=== PATIENT | male | born 1945 | race Caucasian/White ===

== ENCOUNTER 2018-01-16 13:42 | Inpatient (IN) | payer MEDICARE, OTHER ==
[~2018-01-16] VITALS: Ht 170.2 cm; Wt 68.2 kg
[2018-01-16 15:12] LABS: BUN/Creatinine Ratio 25.4; Calcium 8.9 mg/dL (8.5-10.1); Potassium 4.6 mmol/L (3.5-5.1)
[2018-01-16 15:16] LABS: Bilirubin, Total 0.8 mg/dL (0.2-1.0); Total Protein 7.6 g/dL (6.4-8.2)
[2018-01-16 15:23] LABS: Basophils # (auto) 0 uL; Basophils % (auto) 0.2 % (0.0-2.0); Eosinophils # (auto) 0 uL; Eosinophils % (auto) 0.2 % (0.0-7.0); Hematocrit 41.3 % (41.0-53.0); Hemoglobin 13.8 g/dL (13.5-17.5); Lymphocytes # (auto) 0.5 uL; Lymphocytes % (auto) 3.6 % (10.0-50.0); Mean Corpuscular Hemoglobin 30.8 pg (28.0-32.0); Mean Corpuscular Hgb Conc. 33.5 g/dL (32.0-36.0); Mean Corpuscular Volume 92.1 fL (80.0-100.0); Monocytes # (auto) 1.4 uL; Monocytes % (auto) 9.6 % (0.0-12.0); Neutrophils % (auto) 86.4 % (37.0-80.0); Platelet Count (auto) 480 10^3/uL (140-450); Red Blood Cells 4.48 10^6/uL (4.5-5.90); Red Cell Distribution Width 15.4 % (11.8-14.3)
[2018-01-16] MEDS ORDERED: ONDANSETRON HCL 4 MG/2 ML VIAL IV PRN (17:15)
[2018-01-16] MEDS: PIPERACILLIN-TAZOB 3.375GM 100 ML IV SCH (17:45)
[2018-01-16] MEDS ORDERED: ALBUTEROL SULF 2.5 MG/0.5ML(0.5%) NEB SOLN NEB ONE (18:45)
[2018-01-16] MEDS ORDERED: IPRATROPIUM BROM 0.5 MG/2.5ML INH SOL NEB ONE (18:45)
[2018-01-16 20:15] VITALS: BP 99/52
[2018-01-16 22:00] VITALS: BP 99/52
[2018-01-16] MEDS: D5W/LACTATED RINGERS 1,000 ML IV SCH (22:02)
[2018-01-17] MEDS: ALBUTEROL SULF 2.5 MG/0.5ML(0.5%) NEB SOLN NEB SCH ×4 (00:25→18:00)
[2018-01-17] MEDS: IPRATROPIUM BROM 0.5 MG/2.5ML INH SOL NEB SCH ×4 (00:25→18:00)
[2018-01-17] MEDS: PIPERACILLIN-TAZOB 3.375GM 100 ML IV SCH ×3 (01:23→18:31)
[2018-01-17 05:00] VITALS: BP 122/61
[2018-01-17] MEDS: D5W/LACTATED RINGERS 1,000 ML IV SCH ×2 (06:13→21:13)
[2018-01-17 09:26] VITALS: BP 112/58
[2018-01-17 09:30] LABS: Basophils # (auto) 0 uL; Basophils % (auto) 0.5 % (0.0-2.0); Eosinophils # (auto) 0.3 uL; Eosinophils % (auto) 4.5 % (0.0-7.0); Hematocrit 36.1 % (41.0-53.0); Lymphocytes # (auto) 1.4 uL; Lymphocytes % (auto) 19.6 % (10.0-50.0); Mean Corpuscular Hemoglobin 29.7 pg (28.0-32.0); Mean Corpuscular Hgb Conc. 32.4 g/dL (32.0-36.0); Mean Corpuscular Volume 91.9 fL (80.0-100.0); Monocytes # (auto) 0.7 uL; Monocytes % (auto) 9.2 % (0.0-12.0); Neutrophils # (auto) 4.7 uL; Neutrophils % (auto) 66.2 % (37.0-80.0); Platelet Count (auto) 369 10^3/uL (140-450); Red Blood Cells 3.92 10^6/uL (4.5-5.90); Red Cell Distribution Width 15.2 % (11.8-14.3); White Blood Cell 7.1 10^3/uL (4.4-10.8)
[2018-01-17 09:33] LABS: Albumin 2.4 g/dL (3.4-5.0); BUN/Creatinine Ratio 29.9; Bilirubin, Total 0.8 mg/dL (0.2-1.0); Calcium 8.5 mg/dL (8.5-10.1); Total Protein 6.2 g/dL (6.4-8.2)
[2018-01-17 09:37] LABS: Hemoglobin 11.7 g/dL (13.5-17.5)
[2018-01-17 12:29] VITALS: BP 95/53
[2018-01-17] MEDS ORDERED: PANTOPRAZOLE 40 MG TAB PO ONE (13:15)
[2018-01-17 17:00] VITALS: BP 103/60
[2018-01-17] MEDS: METOCLOPRAMIDE HCL 10 MG TAB PO SCH (18:31)
[2018-01-17] MEDS: OXYCODONE W/ ACETAMINOPHEN 5/325MG TABLET PO PRN (18:32)
[2018-01-17] MEDS: PANTOPRAZOLE 40 MG TAB PO SCH (22:02)
[2018-01-17 22:20] VITALS: BP 96/58
[2018-01-18] MEDS: PIPERACILLIN-TAZOB 3.375GM 100 ML IV SCH ×3 (00:43→17:17)
[2018-01-18] MEDS: OXYCODONE W/ ACETAMINOPHEN 5/325MG TABLET PO PRN ×5 (00:43→22:29)
[2018-01-18] MEDS: ALBUTEROL SULF 2.5 MG/0.5ML(0.5%) NEB SOLN NEB SCH ×5 (01:23→19:26)
[2018-01-18] MEDS: IPRATROPIUM BROM 0.5 MG/2.5ML INH SOL NEB SCH ×5 (01:23→19:26)
[2018-01-18 05:07] VITALS: BP 118/69
[2018-01-18] MEDS ORDERED: PIPERACILLIN-TAZOB 3.375GM 100 ML IV SCH (05:30)
[2018-01-18] MEDS: METOCLOPRAMIDE HCL 10 MG TAB PO SCH ×3 (06:35→17:17)
[2018-01-18 06:42] LABS: Basophils # (auto) 0 uL; Basophils % (auto) 0.5 % (0.0-2.0); Eosinophils # (auto) 0.2 uL; Eosinophils % (auto) 4.7 % (0.0-7.0); Hematocrit 30.7 % (41.0-53.0); Hemoglobin 10.1 g/dL (13.5-17.5); Lymphocytes # (auto) 1.4 uL; Mean Corpuscular Hemoglobin 30.5 pg (28.0-32.0); Mean Corpuscular Hgb Conc. 32.9 g/dL (32.0-36.0); Mean Corpuscular Volume 92.5 fL (80.0-100.0); Monocytes # (auto) 0.7 uL; Monocytes % (auto) 13.4 % (0.0-12.0); Neutrophils % (auto) 55.4 % (37.0-80.0); Platelet Count (auto) 352 10^3/uL (140-450); Red Blood Cells 3.32 10^6/uL (4.5-5.90); Red Cell Distribution Width 15.7 % (11.8-14.3); White Blood Cell 5.4 10^3/uL (4.4-10.8)
[2018-01-18 07:01] LABS: Calcium 8.2 mg/dL (8.5-10.1); Potassium 3.8 mmol/L (3.5-5.1)
[2018-01-18 07:03] LABS: BUN/Creatinine Ratio 27.1
[2018-01-18 08:42] LABS: Urine Bacteria NONE SEEN /hpf (None Seen); Urine Blood Negative /uL (Negative); Urine Specific Gravity 1.024 (1.001-1.035); Urine WBC 2 /hpf (0 - 3)
[2018-01-18 09:00] VITALS: BP 123/69
[2018-01-18] MEDS: PANTOPRAZOLE 40 MG TAB PO SCH ×2 (09:22→21:24)
[2018-01-18] MEDS: D5W/LACTATED RINGERS 1,000 ML IV SCH ×2 (09:23→22:35)
[2018-01-18] MEDS ORDERED: TEMAZEPAM 15 MG CAP PO PRN (11:00)
[2018-01-18 13:00] VITALS: BP 104/51
[2018-01-18 17:00] VITALS: BP 126/68
[2018-01-18 20:00] VITALS: BP 114/58
[2018-01-18 22:00] VITALS: BP 114/58
[2018-01-19] MEDS: PIPERACILLIN-TAZOB 3.375GM 100 ML IV SCH ×2 (01:32→09:56)
[2018-01-19 05:00] VITALS: BP 127/77
[2018-01-19] MEDS: OXYCODONE W/ ACETAMINOPHEN 5/325MG TABLET PO PRN (05:16)
[2018-01-19] MEDS: IPRATROPIUM BROM 0.5 MG/2.5ML INH SOL NEB SCH ×2 (06:08)
[2018-01-19] MEDS: ALBUTEROL SULF 2.5 MG/0.5ML(0.5%) NEB SOLN NEB SCH ×2 (06:08)
[2018-01-19 06:26] LABS: Basophils # (auto) 0 uL; Basophils % (auto) 0.7 % (0.0-2.0); Eosinophils # (auto) 0.2 uL; Eosinophils % (auto) 4.4 % (0.0-7.0); Hematocrit 28.8 % (41.0-53.0); Hemoglobin 9.7 g/dL (13.5-17.5); Lymphocytes # (auto) 1.5 uL; Lymphocytes % (auto) 28.8 % (10.0-50.0); Mean Corpuscular Hemoglobin 30.9 pg (28.0-32.0); Mean Corpuscular Hgb Conc. 33.6 g/dL (32.0-36.0); Monocytes # (auto) 0.6 uL; Monocytes % (auto) 11.8 % (0.0-12.0); Neutrophils # (auto) 2.8 uL; Neutrophils % (auto) 54.3 % (37.0-80.0); Nucleated Red Blood Cells % 0.1 %; Platelet Count (auto) 331 10^3/uL (140-450); Red Blood Cells 3.13 10^6/uL (4.5-5.90); Red Cell Distribution Width 15.2 % (11.8-14.3); White Blood Cell 5.1 10^3/uL (4.4-10.8)
[2018-01-19] MEDS: METOCLOPRAMIDE HCL 10 MG TAB PO SCH (06:40)
[2018-01-19 06:43] LABS: Calcium 8.3 mg/dL (8.5-10.1); Potassium 3.9 mmol/L (3.5-5.1)
[2018-01-19 06:46] LABS: BUN/Creatinine Ratio 18.4
[2018-01-19 09:25] VITALS: BP 108/63
[2018-01-19] MEDS: PANTOPRAZOLE 40 MG TAB PO SCH (09:56)
[2018-01-19 10:33] VITALS: BP 108/63
== END 2018-01-19 13:21 | disposition home or self-care (01) | DRG 871 ==
LOC: ER 13:42 → TELE 13:43 → TELE-CENTR 20:13 → CENTRAL 20:21
PROVIDERS: ADMIT Specialist; ATTEND Specialist
DX: A41.9 Sepsis, unspecified organism (principal); N18.6 End stage renal disease; K56.690 Other partial intestinal obstruction; N17.9 Acute kidney failure, unspecified; I13.2 Hypertensive heart and chronic kidney disease with heart failure and with stage 5 chronic kidney disease, or end stage renal disease; N39.0 Urinary tract infection, site not specified; J44.9 Chronic obstructive pulmonary disease, unspecified; I50.9 Heart failure, unspecified
CPT/HCPCS: 36415; 71045; 74176; 80048; 80053; 81001; 82150; 83605; 83690; 84484; 85025; 87040; 87076; 87081; 87086; 93005; 94640; 96361; 96365; 97116; 97163; 97530; J2405; J2543

== ENCOUNTER 2018-02-15 17:06 | Inpatient (IN) | payer MEDICARE, OTHER ==
[~2018-02-15] VITALS: Ht 177.8 cm; Wt 71.7 kg
[2018-02-15] MEDS ORDERED: ONDANSETRON HCL 4 MG/2 ML VIAL IV ONE ×2 (17:30→19:15)
[2018-02-15 18:11] LABS: Basophils # (auto) 0 uL; Eosinophils # (auto) 0 uL; Monocytes # (auto) 1.8 uL
[2018-02-15 18:12] LABS: Basophils % (auto) 0.1 % (0.0-2.0); Hematocrit 49.2 % (41.0-53.0); Hemoglobin 16.4 g/dL (13.5-17.5); Lymphocytes # (auto) 1.4 uL; Lymphocytes % (auto) 6.7 % (10.0-50.0); Mean Corpuscular Hemoglobin 30.4 pg (28.0-32.0); Mean Corpuscular Hgb Conc. 33.4 g/dL (32.0-36.0); Mean Corpuscular Volume 91.1 fL (80.0-100.0); Monocytes % (auto) 8.6 % (0.0-12.0); Neutrophils # (auto) 17.4 uL; Neutrophils % (auto) 84.6 % (37.0-80.0); Nucleated Red Blood Cells % 0.1 %; Platelet Count (auto) 595 10^3/uL (140-450); White Blood Cell 20.5 10^3/uL (4.4-10.8)
[2018-02-15 18:17] LABS: INR 0.99 (0.9-1.15); Partial Thromboplastin Time 26.1 sec (23.78-33.04); Prothrombin Time 10.6 sec (9.27-12.13)
[2018-02-15 18:23] LABS: Lactic Acid w/Reflex 3.9 mmol/L (0.4-2.0)
[2018-02-15 18:34] LABS: Albumin 4.2 g/dL (3.4-5.0); BUN/Creatinine Ratio 15.8; Bilirubin, Total 0.8 mg/dL (0.2-1.0); Calcium 10.6 mg/dL (8.5-10.1); Total Protein 9.4 g/dL (6.4-8.2)
[2018-02-15] MEDS ORDERED: SODIUM CHLORIDE 0.9% 2,000 ML IV ONE (19:15)
[2018-02-15] MEDS ORDERED: InsuLIN REG 1unit/0.01ml Soln (100units/ml) IV ONE (19:15)
[2018-02-15] MEDS ORDERED: CALCIUM GLUC 4.65meq/50ml D5AE 50 ML IV ONE (19:15)
[2018-02-15] MEDS ORDERED: SODIUM POLYSTYRENE SULF 15GM/60ML SUSP PO ONE (19:15)
[2018-02-15] MEDS ORDERED: fentaNYL CITRATE 100 MCG/2 ML VL IV ONE (19:15)
[2018-02-15] MEDS ORDERED: SODIUM BICARBONATE 8.4 % INJ 50ML VIAL IV ONE (19:15)
[2018-02-15] MEDS ORDERED: D5W 5% IV ONE (19:15)
[2018-02-15] MEDS ORDERED: LEVOFLOXACIN 750MG 150 ML IV ONE (19:15)
[2018-02-15] MEDS ORDERED: GASTROGRAFIN 120 ML SOL ONE (20:42)
[2018-02-15] MEDS ORDERED: PIPERACILLIN-TAZOB 2.25GM 50 ML IV ONE (21:30)
[2018-02-15] MEDS ORDERED: ONDANSETRON HCL 4 MG/2 ML VIAL IV PRN (21:30)
[2018-02-15] MEDS ORDERED: SODIUM CHLORIDE 0.9% 1,000 ML IV ONE (21:30)
[2018-02-15] MEDS ORDERED: ACETAMINOPHEN 650 MG RECT SUPP PR PRN (21:30)
[2018-02-15] MEDS ORDERED: MORPHINE SULF(PF) 0.5MG/ML 10ML VIAL IV PRN (21:30)
[2018-02-15] MEDS ORDERED: NITROGLYCERIN 0.4 MG SL TAB SL PRN (21:30)
[2018-02-15] MEDS ORDERED: SODIUM BICARBONATE 50ML VIAL 50 ML in SODIUM CHL 0.9% 1,000 ML IV ONE (21:45)
[2018-02-15] MEDS ORDERED: DEXTROSE 50% SYRINGE 50 ML IV ONE (21:51)
[2018-02-15] MEDS ORDERED: SODIUM BICARBONATE 50ML VIAL 50 ML in SODIUM CHLORIDE 0.9% 1,000 ML IV ONE (22:15)
[2018-02-15] MEDS: MEPERIDINE HCL (25 MG/ML) 1ML VIAL IV PRN (23:45)
[2018-02-16] MEDS: FAMOTIDINE (10MG/ML) 2ML VL IV SCH ×2 (01:00→10:56)
[2018-02-16] MEDS: metroNIDAZOLE 500MG/100ML 100 ML IV SCH ×4 (01:00→20:53)
[2018-02-16] MEDS: PIPERACILLIN-TAZOB 2.25GM 50 ML IV SCH ×4 (02:00→18:37)
[2018-02-16 03:51] LABS: Urine Bacteria NONE SEEN /hpf (None Seen); Urine Blood Negative /uL (Negative); Urine Hyaline Cast MOD /lpf (0 - 2); Urine Mucus FEW (None Seen); Urine WBC 3 /hpf (0 - 3)
[2018-02-16] MEDS: MEPERIDINE HCL (25 MG/ML) 1ML VIAL IV PRN ×4 (05:30→22:27)
[2018-02-16 06:06] LABS: Basophils # (auto) 0 uL; Basophils % (auto) 0.4 % (0.0-2.0); Eosinophils # (auto) 0 uL; Eosinophils % (auto) 0.3 % (0.0-7.0); Hematocrit 37.4 % (41.0-53.0); Hemoglobin 12.4 g/dL (13.5-17.5); Lymphocytes # (auto) 1.6 uL; Lymphocytes % (auto) 12.3 % (10.0-50.0); Mean Corpuscular Hemoglobin 30.3 pg (28.0-32.0); Mean Corpuscular Hgb Conc. 33.2 g/dL (32.0-36.0); Monocytes # (auto) 1.9 uL; Neutrophils # (auto) 9.2 uL; Nucleated Red Blood Cells % 0.1 %; Platelet Count (auto) 415 10^3/uL (140-450); Red Blood Cells 4.11 10^6/uL (4.5-5.90); Red Cell Distribution Width 14.5 % (11.8-14.3); White Blood Cell 12.7 10^3/uL (4.4-10.8)
[2018-02-16 06:39] LABS: Potassium 4.1 mmol/L (3.5-5.1)
[2018-02-16 06:44] LABS: Albumin 2.8 g/dL (3.4-5.0); BUN/Creatinine Ratio 21.8; Calcium 8.1 mg/dL (8.5-10.1)
[2018-02-16 06:47] LABS: Bilirubin, Total 0.8 mg/dL (0.2-1.0); Total Protein 6.1 g/dL (6.4-8.2)
[2018-02-17] MEDS ORDERED: BENZOCAINE (DENTAL) 20 % SPRAY 60ML MT ONE (00:37)
[2018-02-17] MEDS ORDERED: TEMAZEPAM 15 MG CAP ONE (02:37)
[2018-02-17] MEDS: metroNIDAZOLE 500MG/100ML 100 ML IV SCH ×3 (05:00→21:30)
[2018-02-17 05:12] LABS: Basophils # (auto) 0 uL; Basophils % (auto) 0.5 % (0.0-2.0); Eosinophils # (auto) 0.1 uL; Eosinophils % (auto) 1.5 % (0.0-7.0); Hematocrit 36.6 % (41.0-53.0); Hemoglobin 12.1 g/dL (13.5-17.5); Lymphocytes # (auto) 1.1 uL; Lymphocytes % (auto) 11.1 % (10.0-50.0); Mean Corpuscular Hemoglobin 30.5 pg (28.0-32.0); Mean Corpuscular Volume 92.5 fL (80.0-100.0); Monocytes # (auto) 1.2 uL; Neutrophils # (auto) 7.5 uL; Neutrophils % (auto) 74.9 % (37.0-80.0); Platelet Count (auto) 367 10^3/uL (140-450); Red Blood Cells 3.96 10^6/uL (4.5-5.90); Red Cell Distribution Width 14.7 % (11.8-14.3)
[2018-02-17 05:23] LABS: Albumin 2.6 g/dL (3.4-5.0); Calcium 8.2 mg/dL (8.5-10.1); Potassium 3.5 mmol/L (3.5-5.1)
[2018-02-17 05:25] LABS: BUN/Creatinine Ratio 23.2
[2018-02-17 05:27] LABS: Bilirubin, Total 0.6 mg/dL (0.2-1.0); Total Protein 5.8 g/dL (6.4-8.2)
[2018-02-17] MEDS: PIPERACILLIN-TAZOB 2.25GM 50 ML IV SCH ×4 (06:02→18:00)
[2018-02-17] MEDS ORDERED: SODIUM CHLORIDE LOCK 10 ML ONE (08:26)
[2018-02-17] MEDS ORDERED: diphenhdrAMINE HCL 50 MG/1 ML VL ONE (08:26)
[2018-02-17] MEDS: FAMOTIDINE (10MG/ML) 2ML VL IV SCH (10:07)
[2018-02-17 10:27] VITALS: BP 139/81
[2018-02-17 12:00] VITALS: BP 116/51
[2018-02-17] MEDS: MIDAZOLAM HCL 5 MG/ML-1ML VIAL ONE ×2 (13:28→13:40)
[2018-02-17] MEDS: fentaNYL CITRATE 100 MCG/2 ML VL ONE ×2 (13:28→13:40)
[2018-02-17 16:00] VITALS: BP 114/66
[2018-02-17 19:53] VITALS: BP 151/82
[2018-02-18 00:15] VITALS: BP 137/72
[2018-02-18] MEDS: PIPERACILLIN-TAZOB 2.25GM 50 ML IV SCH ×4 (00:25→18:33)
[2018-02-18 04:00] VITALS: BP 142/70
[2018-02-18] MEDS: metroNIDAZOLE 500MG/100ML 100 ML IV SCH ×3 (05:03→22:12)
[2018-02-18 05:47] LABS: Basophils # (auto) 0 uL; Basophils % (auto) 0.3 % (0.0-2.0); Eosinophils # (auto) 0.3 uL; Eosinophils % (auto) 2.7 % (0.0-7.0); Lymphocytes # (auto) 1.2 uL; Lymphocytes % (auto) 12.3 % (10.0-50.0); Mean Corpuscular Hemoglobin 30.4 pg (28.0-32.0); Mean Corpuscular Hgb Conc. 32.4 g/dL (32.0-36.0); Mean Corpuscular Volume 93.7 fL (80.0-100.0); Monocytes # (auto) 0.9 uL; Monocytes % (auto) 9.7 % (0.0-12.0); Neutrophils # (auto) 7.1 uL; Platelet Count (auto) 317 10^3/uL (140-450); Red Blood Cells 3.94 10^6/uL (4.5-5.90); Red Cell Distribution Width 14.6 % (11.8-14.3); White Blood Cell 9.5 10^3/uL (4.4-10.8)
[2018-02-18 06:11] LABS: Albumin 2.6 g/dL (3.4-5.0); BUN/Creatinine Ratio 23.1; Calcium 8.2 mg/dL (8.5-10.1)
[2018-02-18 06:13] LABS: Bilirubin, Total 0.9 mg/dL (0.2-1.0); Total Protein 5.8 g/dL (6.4-8.2)
[2018-02-18 08:00] VITALS: BP 144/82
[2018-02-18] MEDS ORDERED: POTASSIUM CHLORIDE 20 MEQ, LIDOCAINE 1% (LOCAL ANESTH.) 2 ML in SODIUM CHL 0.9% 100 ML IV ONE (10:30)
[2018-02-18] MEDS: MEPERIDINE HCL (25 MG/ML) 1ML VIAL IV PRN ×2 (10:40→19:52)
[2018-02-18] MEDS: FAMOTIDINE (10MG/ML) 2ML VL IV SCH (10:40)
[2018-02-18 11:54] VITALS: BP 140/84
[2018-02-18] MEDS ORDERED: DEXTROSE 10% 1,000 ML IV SCH (12:15)
[2018-02-18] MEDS: POTASSIUM CHL 20MEQ/100ML 100 ML IV SCH ×3 (14:44→18:33)
[2018-02-18 16:01] VITALS: BP 158/75
[2018-02-18] MEDS: D5W/SOD CHL 0.45% 1,000 ML IV SCH (16:38)
[2018-02-18 22:00] VITALS: BP 142/71
[2018-02-19] MEDS: PIPERACILLIN-TAZOB 2.25GM 50 ML IV SCH ×4 (00:37→17:39)
[2018-02-19] MEDS: D5W/SOD CHL 0.45% 1,000 ML IV SCH ×2 (00:38→17:40)
[2018-02-19] MEDS: MEPERIDINE HCL (25 MG/ML) 1ML VIAL IV PRN ×4 (04:58→18:41)
[2018-02-19] MEDS: metroNIDAZOLE 500MG/100ML 100 ML IV SCH ×3 (04:59→21:38)
[2018-02-19 05:00] VITALS: BP 164/74
[2018-02-19 06:31] LABS: Basophils # (auto) 0 uL; Basophils % (auto) 0.6 % (0.0-2.0); Eosinophils # (auto) 0.3 uL; Eosinophils % (auto) 3.2 % (0.0-7.0); Hematocrit 33.8 % (41.0-53.0); Hemoglobin 11.3 g/dL (13.5-17.5); Lymphocytes # (auto) 1.2 uL; Lymphocytes % (auto) 14.3 % (10.0-50.0); Mean Corpuscular Hemoglobin 30.7 pg (28.0-32.0); Mean Corpuscular Hgb Conc. 33.3 g/dL (32.0-36.0); Mean Corpuscular Volume 92.2 fL (80.0-100.0); Monocytes # (auto) 0.8 uL; Monocytes % (auto) 9.6 % (0.0-12.0); Neutrophils # (auto) 6.1 uL; Neutrophils % (auto) 72.3 % (37.0-80.0); Platelet Count (auto) 317 10^3/uL (140-450); Red Blood Cells 3.67 10^6/uL (4.5-5.90); Red Cell Distribution Width 13.9 % (11.8-14.3); White Blood Cell 8.4 10^3/uL (4.4-10.8)
[2018-02-19 06:47] LABS: Albumin 2.4 g/dL (3.4-5.0); BUN/Creatinine Ratio 17.6; Bilirubin, Total 0.8 mg/dL (0.2-1.0); Calcium 8.2 mg/dL (8.5-10.1); Potassium 3.3 mmol/L (3.5-5.1); Total Protein 5.2 g/dL (6.4-8.2)
[2018-02-19 09:00] VITALS: BP 153/76
[2018-02-19] MEDS: FAMOTIDINE (10MG/ML) 2ML VL IV SCH (09:56)
[2018-02-19 13:00] VITALS: BP 149/74
[2018-02-19 17:00] VITALS: BP 165/94
[2018-02-19] MEDS: TEMAZEPAM 15 MG CAP PO PRN (21:38)
[2018-02-19 21:49] VITALS: BP 141/72
[2018-02-20 04:53] VITALS: BP 140/68
[2018-02-20] MEDS: metroNIDAZOLE 500MG/100ML 100 ML IV SCH ×3 (06:04→21:07)
[2018-02-20] MEDS: PIPERACILLIN-TAZOB 2.25GM 50 ML IV SCH ×5 (06:05→23:51)
[2018-02-20] MEDS: MEPERIDINE HCL (25 MG/ML) 1ML VIAL IV PRN ×4 (06:10→20:41)
[2018-02-20] MEDS: D5W/SOD CHL 0.45% 1,000 ML IV SCH (06:51)
[2018-02-20 07:33] LABS: INR 1.2 (0.9-1.15); Partial Thromboplastin Time 26.5 sec (23.78-33.04); Prothrombin Time 12.7 sec (9.27-12.13)
[2018-02-20 09:00] VITALS: BP 125/67
[2018-02-20] MEDS: FAMOTIDINE (10MG/ML) 2ML VL IV SCH (09:38)
[2018-02-20] MEDS: POTASSIUM CHL 10 Meq TABLET PO SCH ×6 (12:00→17:11)
[2018-02-20 13:00] VITALS: BP 141/79
[2018-02-20 17:00] VITALS: BP 161/86
[2018-02-20] MEDS: TEMAZEPAM 15 MG CAP PO PRN (21:06)
[2018-02-20] MEDS: METOPROLOL TARTRATE 25 MG TAB PO SCH (21:07)
[2018-02-20 22:45] VITALS: BP 136/74
[2018-02-21] MEDS: D5W/SOD CHL 0.45% 1,000 ML IV SCH ×2 (05:13→16:26)
[2018-02-21] MEDS: metroNIDAZOLE 500MG/100ML 100 ML IV SCH ×3 (05:13→21:48)
[2018-02-21] MEDS: MEPERIDINE HCL (25 MG/ML) 1ML VIAL IV PRN ×3 (05:14→17:52)
[2018-02-21 05:20] VITALS: BP 144/70
[2018-02-21] MEDS: PIPERACILLIN-TAZOB 2.25GM 50 ML IV SCH ×4 (06:09→23:54)
[2018-02-21 09:23] VITALS: BP 137/73
[2018-02-21] MEDS: METOPROLOL TARTRATE 25 MG TAB PO SCH ×2 (10:19→21:49)
[2018-02-21] MEDS: FAMOTIDINE (10MG/ML) 2ML VL IV SCH (10:19)
[2018-02-21 13:28] VITALS: BP 146/77
[2018-02-21 14:14] LABS: BUN/Creatinine Ratio 6.3; Calcium 7.9 mg/dL (8.5-10.1); Potassium 3.6 mmol/L (3.5-5.1)
[2018-02-21] MEDS ORDERED: GOLYTELY 4L KIT PO ONE (14:30)
[2018-02-21 17:24] VITALS: BP 165/88
[2018-02-21 22:24] VITALS: BP 164/101
[2018-02-22] MEDS: MEPERIDINE HCL (25 MG/ML) 1ML VIAL IV PRN ×4 (03:12→21:25)
[2018-02-22] MEDS: D5W/SOD CHL 0.45% 1,000 ML IV SCH ×3 (04:55→21:57)
[2018-02-22] MEDS: metroNIDAZOLE 500MG/100ML 100 ML IV SCH ×3 (04:58→20:40)
[2018-02-22 05:50] VITALS: BP 148/75
[2018-02-22] MEDS: PIPERACILLIN-TAZOB 2.25GM 50 ML IV SCH ×3 (06:03→16:45)
[2018-02-22 09:06] VITALS: BP 163/75
[2018-02-22] MEDS: FAMOTIDINE (10MG/ML) 2ML VL IV SCH (10:00)
[2018-02-22] MEDS: METOPROLOL TARTRATE 25 MG TAB PO SCH ×2 (10:00→21:25)
[2018-02-22] MEDS ORDERED: ceFAZolin 1GM/50ML 50 ML IV ONE (10:22)
[2018-02-22] MEDS ORDERED: PROPOFOL 10 MG/ML 20 ML IV ONE (10:49)
[2018-02-22] MEDS ORDERED: fentaNYL CITRATE 100 MCG/2 ML VL ONE ×2 (10:49→11:15)
[2018-02-22] MEDS ORDERED: ROCURONIUM 10MG/ML 10ML VIAL IV ONE (10:49)
[2018-02-22] MEDS ORDERED: MORPHINE SULFATE INJECTION 1 ML ONE (11:24)
[2018-02-22] MEDS ORDERED: LABETALOL HCL 5 MG/ML ML 20ML VIAL IV ONE (11:24)
[2018-02-22] MEDS ORDERED: ePHEDrine SULFATE 50 MG/ML AMP IV PRN (12:15)
[2018-02-22] MEDS ORDERED: hydrALAZINE HCL 20 MG/ML VL IV PRN (12:15)
[2018-02-22] MEDS: MORPHINE SULF INJ 2 MG/ML SYRINGE 1ML IV PRN ×3 (12:31→13:10)
[2018-02-22 14:36] LABS: Basophils # (auto) 0.1 uL; Basophils % (auto) 0.3 % (0.0-2.0); Eosinophils # (auto) 0.1 uL; Eosinophils % (auto) 0.7 % (0.0-7.0); Lymphocytes # (auto) 1.5 uL; Lymphocytes % (auto) 8.5 % (10.0-50.0); Mean Corpuscular Hemoglobin 30.3 pg (28.0-32.0); Mean Corpuscular Hgb Conc. 32.6 g/dL (32.0-36.0); Mean Corpuscular Volume 92.9 fL (80.0-100.0); Monocytes % (auto) 5.7 % (0.0-12.0); Neutrophils # (auto) 14.8 uL; Neutrophils % (auto) 84.8 % (37.0-80.0); Nucleated Red Blood Cells % 0.1 %; Platelet Count (auto) 342 10^3/uL (140-450); Red Blood Cells 4.63 10^6/uL (4.5-5.90); Red Cell Distribution Width 14.3 % (11.8-14.3); White Blood Cell 17.5 10^3/uL (4.4-10.8)
[2018-02-22 15:01] LABS: BUN/Creatinine Ratio 5.8; Calcium 7.7 mg/dL (8.5-10.1); Potassium 3.5 mmol/L (3.5-5.1)
[2018-02-22 17:40] VITALS: BP 166/78
[2018-02-22 21:54] VITALS: BP 156/91
[2018-02-22 23:00] VITALS: BP 124/89
[2018-02-23] MEDS: PIPERACILLIN-TAZOB 2.25GM 50 ML IV SCH ×4 (00:07→17:42)
[2018-02-23] MEDS: metroNIDAZOLE 500MG/100ML 100 ML IV SCH ×3 (04:41→20:31)
[2018-02-23] MEDS: MEPERIDINE HCL (25 MG/ML) 1ML VIAL IV PRN ×4 (04:42→19:02)
[2018-02-23 05:15] VITALS: BP 171/91
[2018-02-23 05:21] VITALS: BP 133/75
[2018-02-23 07:48] LABS: Basophils # (auto) 0.1 uL; Basophils % (auto) 0.6 % (0.0-2.0); Eosinophils # (auto) 0.1 uL; Hematocrit 38.8 % (41.0-53.0); Hemoglobin 12.7 g/dL (13.5-17.5); Lymphocytes # (auto) 1.4 uL; Lymphocytes % (auto) 11.3 % (10.0-50.0); Mean Corpuscular Hemoglobin 29.9 pg (28.0-32.0); Mean Corpuscular Hgb Conc. 32.6 g/dL (32.0-36.0); Mean Corpuscular Volume 91.9 fL (80.0-100.0); Monocytes # (auto) 1.3 uL; Monocytes % (auto) 11.1 % (0.0-12.0); Neutrophils # (auto) 9.1 uL; Platelet Count (auto) 315 10^3/uL (140-450); Red Blood Cells 4.23 10^6/uL (4.5-5.90); Red Cell Distribution Width 14.5 % (11.8-14.3); White Blood Cell 11.9 10^3/uL (4.4-10.8)
[2018-02-23 08:02] LABS: Anion Gap 12 (5-15); Blood Urea Nitrogen 6 mg/dL (7-18); Calcium 7.6 mg/dL (8.5-10.1); Carbon Dioxide 25 mmol/L (21-32); Chloride 107 mmol/L (98-107); GFR African American 112 mL/min; GFR Non-African American 93 mL/min; Glucose 99 mg/dL (74-106); Potassium 3.8 mmol/L (3.5-5.1); Sodium 144 mmol/L (136-145)
[2018-02-23 08:48] VITALS: BP 193/83
[2018-02-23] MEDS ORDERED: LABETALOL HCL 5 MG/ML ML 20ML VIAL IV PRN (10:30)
[2018-02-23] MEDS: FAMOTIDINE (10MG/ML) 2ML VL IV SCH (10:40)
[2018-02-23] MEDS: METOPROLOL TARTRATE 25 MG TAB PO SCH ×2 (10:40→21:44)
[2018-02-23 13:07] VITALS: BP 147/91
[2018-02-23] MEDS: LABETALOL HCL 5 MG/ML ML 20ML VIAL IV PRN (16:59)
[2018-02-23 17:15] VITALS: BP 156/103
[2018-02-23] MEDS: D5W/SOD CHL 0.45% 1,000 ML IV SCH (21:38)
[2018-02-23 22:00] VITALS: BP 127/79
[2018-02-23] MEDS: ALBUTEROL SULF 2.5 MG/0.5ML(0.5%) NEB SOLN NEB SCH (22:16)
[2018-02-24] MEDS: MEPERIDINE HCL (25 MG/ML) 1ML VIAL IV PRN ×4 (03:05→18:37)
[2018-02-24] MEDS: metroNIDAZOLE 500MG/100ML 100 ML IV SCH ×3 (04:33→20:46)
[2018-02-24 05:13] VITALS: BP 139/68
[2018-02-24] MEDS: PIPERACILLIN-TAZOB 2.25GM 50 ML IV SCH ×5 (05:45→23:32)
[2018-02-24 06:16] VITALS: BP 139/68
[2018-02-24] MEDS: ALBUTEROL SULF 2.5 MG/0.5ML(0.5%) NEB SOLN NEB SCH ×4 (06:35→18:30)
[2018-02-24 07:06] LABS: Calcium 7.4 mg/dL (8.5-10.1); Potassium 3.3 mmol/L (3.5-5.1)
[2018-02-24 07:12] LABS: Basophils # (auto) 0 uL; Basophils % (auto) 0.5 % (0.0-2.0); Eosinophils # (auto) 0.2 uL; Eosinophils % (auto) 2.2 % (0.0-7.0); Hematocrit 33.4 % (41.0-53.0); Hemoglobin 11.3 g/dL (13.5-17.5); Lymphocytes # (auto) 1.1 uL; Lymphocytes % (auto) 14.8 % (10.0-50.0); Mean Corpuscular Hemoglobin 30.7 pg (28.0-32.0); Mean Corpuscular Hgb Conc. 33.8 g/dL (32.0-36.0); Mean Corpuscular Volume 90.8 fL (80.0-100.0); Monocytes # (auto) 0.9 uL; Neutrophils # (auto) 5.4 uL; Neutrophils % (auto) 70.5 % (37.0-80.0); Nucleated Red Blood Cells % 0.2 %; Platelet Count (auto) 273 10^3/uL (140-450); Red Blood Cells 3.67 10^6/uL (4.5-5.90); Red Cell Distribution Width 14.1 % (11.8-14.3); White Blood Cell 7.7 10^3/uL (4.4-10.8)
[2018-02-24 08:24] VITALS: BP 148/74
[2018-02-24] MEDS: FAMOTIDINE (10MG/ML) 2ML VL IV SCH (10:55)
[2018-02-24] MEDS: METOPROLOL TARTRATE 25 MG TAB PO SCH ×2 (10:56→21:23)
[2018-02-24] MEDS: D5W/SOD CHL 0.45% 1,000 ML IV SCH (11:48)
[2018-02-24 12:40] VITALS: BP 137/66
[2018-02-24 17:14] VITALS: BP 146/68
[2018-02-24] MEDS: TEMAZEPAM 15 MG CAP PO PRN (21:23)
[2018-02-24 22:00] VITALS: BP 141/64
[2018-02-25] MEDS: D5W/SOD CHL 0.45% 1,000 ML IV SCH ×2 (01:33→17:38)
[2018-02-25] MEDS: MEPERIDINE HCL (25 MG/ML) 1ML VIAL IV PRN ×4 (03:03→20:35)
[2018-02-25] MEDS: metroNIDAZOLE 500MG/100ML 100 ML IV SCH ×3 (04:50→22:25)
[2018-02-25 05:47] VITALS: BP 144/75
[2018-02-25] MEDS: PIPERACILLIN-TAZOB 2.25GM 50 ML IV SCH (05:49)
[2018-02-25] MEDS: ALBUTEROL SULF 2.5 MG/0.5ML(0.5%) NEB SOLN NEB SCH ×4 (06:41→18:33)
[2018-02-25 09:07] VITALS: BP 139/92
[2018-02-25] MEDS: METOPROLOL TARTRATE 25 MG TAB PO SCH ×2 (09:35→22:26)
[2018-02-25] MEDS: FAMOTIDINE (10MG/ML) 2ML VL IV SCH ×3 (09:40→22:26)
[2018-02-25] MEDS: PIPERACILLIN-TAZOB 3.375GM 100 ML IV SCH ×3 (11:43→23:51)
[2018-02-25 13:00] VITALS: BP 159/74
[2018-02-25 17:00] VITALS: BP 165/83
[2018-02-25 18:20] VITALS: BP 131/90
[2018-02-25 22:00] VITALS: BP 141/63
[2018-02-25] MEDS: TEMAZEPAM 15 MG CAP PO PRN (22:28)
[2018-02-26] MEDS: MEPERIDINE HCL (25 MG/ML) 1ML VIAL IV PRN ×5 (03:32→22:18)
[2018-02-26 05:00] VITALS: BP 162/98
[2018-02-26] MEDS: ALBUTEROL SULF 2.5 MG/0.5ML(0.5%) NEB SOLN NEB SCH ×4 (05:43→19:00)
[2018-02-26] MEDS: metroNIDAZOLE 500MG/100ML 100 ML IV SCH ×3 (05:51→21:29)
[2018-02-26] MEDS: D5W/SOD CHL 0.45% 1,000 ML IV SCH ×2 (06:58→20:40)
[2018-02-26] MEDS: PIPERACILLIN-TAZOB 3.375GM 100 ML IV SCH ×4 (06:58→23:42)
[2018-02-26] MEDS: LABETALOL HCL 5 MG/ML ML 20ML VIAL IV PRN ×2 (06:58→22:19)
[2018-02-26 08:07] LABS: Basophils # (auto) 0.1 uL; Basophils % (auto) 0.8 % (0.0-2.0); Eosinophils # (auto) 0.2 uL; Eosinophils % (auto) 3.5 % (0.0-7.0); Hematocrit 32.1 % (41.0-53.0); Hemoglobin 10.7 g/dL (13.5-17.5); Lymphocytes % (auto) 15.5 % (10.0-50.0); Mean Corpuscular Hemoglobin 30.4 pg (28.0-32.0); Mean Corpuscular Hgb Conc. 33.4 g/dL (32.0-36.0); Monocytes # (auto) 0.8 uL; Monocytes % (auto) 12.3 % (0.0-12.0); Neutrophils # (auto) 4.2 uL; Neutrophils % (auto) 67.9 % (37.0-80.0); Nucleated Red Blood Cells % 0.1 %; Platelet Count (auto) 316 10^3/uL (140-450); Red Blood Cells 3.52 10^6/uL (4.5-5.90); Red Cell Distribution Width 14.4 % (11.8-14.3); White Blood Cell 6.2 10^3/uL (4.4-10.8)
[2018-02-26 08:33] LABS: BUN/Creatinine Ratio 5.8; Calcium 7.6 mg/dL (8.5-10.1)
[2018-02-26 09:00] VITALS: BP 156/63
[2018-02-26] MEDS: METOPROLOL TARTRATE 25 MG TAB PO SCH ×2 (09:38→22:18)
[2018-02-26] MEDS: FAMOTIDINE (10MG/ML) 2ML VL IV SCH ×2 (09:40→22:17)
[2018-02-26 13:00] VITALS: BP 159/79
[2018-02-26 17:00] VITALS: BP 142/58
[2018-02-26 22:00] VITALS: BP 152/63
[2018-02-26] MEDS: TEMAZEPAM 15 MG CAP PO PRN (23:55)
[2018-02-27] VITALS (7 sets, daily range): BP systolic 140–173; BP diastolic 80–97
[2018-02-27] MEDS ORDERED: POTASSIUM CHL 20 Meq TABLET PO ONE ×2 (01:45→19:30)
[2018-02-27] MEDS: metroNIDAZOLE 500MG/100ML 100 ML IV SCH ×3 (05:05→21:00)
[2018-02-27 06:03] LABS: Basophils # (auto) 0.1 uL; Basophils % (auto) 0.8 % (0.0-2.0); Eosinophils # (auto) 0.2 uL; Eosinophils % (auto) 3.2 % (0.0-7.0); Hematocrit 32.3 % (41.0-53.0); Lymphocytes # (auto) 0.9 uL; Mean Corpuscular Hemoglobin 30.7 pg (28.0-32.0); Mean Corpuscular Volume 90.2 fL (80.0-100.0); Monocytes # (auto) 0.8 uL; Monocytes % (auto) 11.6 % (0.0-12.0); Neutrophils # (auto) 4.7 uL; Neutrophils % (auto) 70.4 % (37.0-80.0); Nucleated Red Blood Cells % 0.1 %; Platelet Count (auto) 334 10^3/uL (140-450); Red Blood Cells 3.58 10^6/uL (4.5-5.90); Red Cell Distribution Width 14.2 % (11.8-14.3); White Blood Cell 6.7 10^3/uL (4.4-10.8)
[2018-02-27 06:23] LABS: BUN/Creatinine Ratio 5.5; Calcium 7.5 mg/dL (8.5-10.1)
[2018-02-27] MEDS: PIPERACILLIN-TAZOB 3.375GM 100 ML IV SCH ×3 (06:32→17:23)
[2018-02-27] MEDS: MEPERIDINE HCL (25 MG/ML) 1ML VIAL IV PRN ×4 (06:32→21:31)
[2018-02-27] MEDS: ALBUTEROL SULF 2.5 MG/0.5ML(0.5%) NEB SOLN NEB SCH ×4 (07:04→18:19)
[2018-02-27] MEDS: METOPROLOL TARTRATE 25 MG TAB PO SCH ×2 (09:20→22:02)
[2018-02-27] MEDS: FAMOTIDINE (10MG/ML) 2ML VL IV SCH ×2 (09:20→22:01)
[2018-02-27] MEDS: D5W/SOD CHL 0.45% 1,000 ML IV SCH (10:45)
[2018-02-27] MEDS: LABETALOL HCL 5 MG/ML ML 20ML VIAL IV PRN ×3 (11:54→16:23)
[2018-02-27] MEDS: TEMAZEPAM 15 MG CAP PO PRN (22:02)
[2018-02-28] MEDS: PIPERACILLIN-TAZOB 3.375GM 100 ML IV SCH ×3 (00:16→13:00)
[2018-02-28] MEDS: D5W/SOD CHL 0.45% 1,000 ML IV SCH (00:16)
[2018-02-28] MEDS: LABETALOL HCL 5 MG/ML ML 20ML VIAL IV PRN ×2 (04:57→13:01)
[2018-02-28] MEDS: metroNIDAZOLE 500MG/100ML 100 ML IV SCH ×2 (04:59→13:01)
[2018-02-28 05:30] VITALS: BP 159/92
[2018-02-28] MEDS: ALBUTEROL SULF 2.5 MG/0.5ML(0.5%) NEB SOLN NEB SCH ×2 (07:03→10:02)
[2018-02-28 08:00] VITALS: BP 153/90
[2018-02-28] MEDS: METOPROLOL TARTRATE 25 MG TAB PO SCH (09:22)
[2018-02-28] MEDS: FAMOTIDINE (10MG/ML) 2ML VL IV SCH (09:23)
[2018-02-28] MEDS: MEPERIDINE HCL (25 MG/ML) 1ML VIAL IV PRN (09:28)
[2018-02-28 13:01] VITALS: BP 153/84
[2018-02-28] MEDS ORDERED: ACETAMINOPHEN 650 MG RECT SUPP PR ONE (17:34)
== END 2018-02-28 16:27 | DRG 853 ==
LOC: ER 17:06 → EDBD 17:06 → TELE 17:07 → DOU IN ICU 02-17 10:49 → TELE-WESTW 02-18 17:51
PROVIDERS: ADMIT Specialist; ATTEND Specialist
PROC: 0DJD8ZZ Inspection of Lower Intestinal Tract, Via Natural or Artificial Opening Endoscopic (ICD-10-PCS; principal; 2018-02-17 13:25)
PROC: 0DNL0ZZ Release Transverse Colon, Open Approach (ICD-10-PCS; 2018-02-22)
DX: A41.9 Sepsis, unspecified organism (principal); N17.0 Acute kidney failure with tubular necrosis; E87.1 Hypo-osmolality and hyponatremia; K56.51 Intestinal adhesions [bands], with partial obstruction; E87.6 Hypokalemia; E87.5 Hyperkalemia; I10 Essential (primary) hypertension; I25.10 Atherosclerotic heart disease of native coronary artery without angina pectoris; I72.3 Aneurysm of iliac artery; J44.9 Chronic obstructive pulmonary disease, unspecified; M54.9 Dorsalgia, unspecified; K57.30 Diverticulosis of large intestine without perforation or abscess without bleeding; M43.16 Spondylolisthesis, lumbar region; M48.061 Spinal stenosis, lumbar region without neurogenic claudication; Z80.8 Family history of malignant neoplasm of other organs or systems; Z82.49 Family history of ischemic heart disease and other diseases of the circulatory system; Z87.891 Personal history of nicotine dependence; Z90.49 Acquired absence of other specified parts of digestive tract; Z98.2 Presence of cerebrospinal fluid drainage device; Z79.899 Other long term (current) drug therapy
CPT/HCPCS: 36415; 70450; 71045; 74176; 74250; 80048; 80053; 81001; 82150; 82962; 83605; 83690; 84132; 84484; 85025; 85610; 85730; 86850; 86900; 86901; 87040; 87081; 87493; 93005; 93306; 94640; 96374; 96375; 96376; 97110; 97116; 97530; J0610; J0690; J1815; J1956; J2250; J2405; J2543; J2704; J3480; J3490